=== PATIENT | female | born 1960 | race Two or more races ===

== ENCOUNTER 2025-05-09 14:00 | Emergency (ER) | payer OTHER ==
[~2025-05-09] VITALS: Ht 152.4 cm; Wt 71.2 kg
[2025-05-09 14:10] VITALS: BP 140/79; TEMP 98.3; O2SAT 96
== END 2025-05-09 15:52 | disposition home or self-care (01) ==
LOC: ER 14:08 → EDSEX 14:08 → ER 15:52
DX: S80.02XA Contusion of left knee, initial encounter (principal); E11.9 Type 2 diabetes mellitus without complications; V03.10XA Pedestrian on foot injured in collision with car, pick-up truck or van in traffic accident, initial encounter; Y93.01 Activity, walking, marching and hiking; Y92.89 Other specified places as the place of occurrence of the external cause; Y99.9 Unspecified external cause status
CPT/HCPCS: 73552; 73564-TC; 73590-TC